=== PATIENT | male | born 1980 | race Two or more races ===

== ENCOUNTER 2020-09-05 15:34 | Emergency (ER) | payer MEDICAID ==
[~2020-09-05] VITALS: Ht 172.7 cm; Wt 136.0 kg
[2020-09-05] MEDS ORDERED: LIDOCAINE HCL 4% (40MG/ML) SOLN 50ML TOP ONE (16:30)
[2020-09-05] MEDS ORDERED: LIDOCAINE HCL 4% (40MG/ML) SOLN 50ML NEB NR (17:00)
[2020-09-05] MEDS ORDERED: BARIUM SULFATE 450ML ORAL SUSP PO ONE (18:30)
[2020-09-05 20:32] VITALS: BP 120/70
== END 2020-09-05 20:40 | disposition home or self-care (01) ==
LOC: ER 15:34
DX: R09.89 Other specified symptoms and signs involving the circulatory and respiratory systems (principal); F45.8 Other somatoform disorders; J45.909 Unspecified asthma, uncomplicated; F15.10 Other stimulant abuse, uncomplicated
CPT/HCPCS: 70360; 70490; 99284; Z7610